=== PATIENT | female | born 2000 | race Caucasian/White ===

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

== ENCOUNTER 2022-03-18 21:05 | Emergency (ER) | payer MEDICAID ==
[~2022-03-18] VITALS: Ht 167.6 cm; Wt 81.8 kg
[~2022-03-18 21:05] MED LIST changes: +ZOFRAN4 M2 PO
[2022-03-18] MEDS ORDERED: CLEOCIN HCL150 M1 PO (21:48)
== END 2022-03-18 22:01 | disposition home or self-care (01) ==
LOC: ED 21:05
DX: K05.10 Chronic gingivitis, plaque induced (principal); F17.290 Nicotine dependence, other tobacco product, uncomplicated; Z88.1 Allergy status to other antibiotic agents; Z28.310 Unvaccinated for COVID-19

== ENCOUNTER 2022-04-08 13:02 | Emergency (ER) | payer MEDICAID ==
[~2022-04-08] VITALS: Ht 167.6 cm; Wt 81.8 kg
[~2022-04-08 13:02] MED LIST changes: +CLEOCIN HCL150 M1 PO
[2022-04-08 13:05] VITALS: BP 115/65
[2022-04-08] MEDS ORDERED: CEPHALEXIN500 M1 PO (13:49)
[2022-04-17 13:19] LABS: HERPES SIMPLEX VIRUS MOLECULAR AMS
== END 2022-04-08 13:56 | disposition home or self-care (01) ==
LOC: ED 13:02
PROVIDERS: Family Medicine
DX: N76.6 Ulceration of vulva (principal); F17.290 Nicotine dependence, other tobacco product, uncomplicated; Z28.310 Unvaccinated for COVID-19

== ENCOUNTER 2024-01-18 03:03 | Emergency (ER) | payer SELFPAY ==
[~2024-01-18 03:03] MED LIST changes: +CEPHALEXIN500 M1 PO; +CRUTCHES MC; +KETOROLAC10 MG PO
[2024-03-10 11:02] LABS: BASO # 0.01 K/mm3 (0.02-0.10); EOS # 0.05 K/mm3 (0.04-0.40); EOS % 0.5 % (1.0-5.0); HEMATOCRIT 38.8 % (37.0-47.0); HEMOGLOBIN 12.9 g/dL (12.5-16.0); LYMPH# 2.66 K/mm3 (1.50-4.00); MEAN CELL VOLUME 93 fl (78-100); MEAN CORPUSCULAR HEMOGLOBIN 31 pg (27-31); MEAN CORPUSCULAR HGB CONC 33 g/dL (33-37); MEAN PLATELET VOLUME 10.6 fl (7.4-10.4); MONO # 0.79 K/mm3 (0.20-0.80); NEU # 6.72 K/mm3 (1.40-6.50); PLATELET COUNT 246 K/mm3 (130-400); RED BLOOD COUNT 4.18 M/mm3 (4.10-5.30); RED CELL DISTRIBUTION WIDTH 13.5 % (11.5-14.5); WHITE BLOOD COUNT 10.2 K/mm3 (4.8-10.8)
[2024-03-10 11:10] LABS: ACETAMINOPHEN < 1 ug/mL; ALBUMIN 4.4 g/dL (3.5-5.0); ALCOHOL IN-HOUSE 87 mg/dL (<10); ALT/SGPT 14 U/L (0-55); AST-SGOT 17 U/L (5-34); CALCIUM 9.3 mg/dL (8.3-10.5); CARBON DIOXIDE 18 mmol/L (22-29); GLUCOSE 106 mg/dL (65-105); SODIUM 143 mmol/L (136-145); TOTAL BILIRUBIN 0.2 mg/dL (0.2-1.2); TOTAL PROTEIN 6.9 g/dL (6.4-8.3)
[2024-03-10 11:11] LABS: PH-URINE 5.5 (5.0 - 8.0); URINE APPEARANCE CLOUDY (CLEAR)
[2024-03-10 11:12] LABS: URINE BILIRUBIN NEGATIVE (NEGATIVE); URINE BLOOD 2+ (NEGATIVE); URINE COLOR LIGHT YELLOW (YELLOW); URINE GLUCOSE NEGATIVE (NEGATIVE); URINE KETONE NEGATIVE (NEGATIVE); URINE LEUKOCYTE ESTERASE NEGATIVE (NEGATIVE); URINE NITRATE NEGATIVE (NEGATIVE); URINE PROTEIN(semi-quant) NEGATIVE (NEGATIVE); URINE WBC 0-1 /hpf (0-3)
== END 2024-01-18 09:52 | disposition home or self-care (01) ==
LOC: ED 03:03
PROVIDERS: Family Medicine
DX: F10.10 Alcohol abuse, uncomplicated (principal); F32.A Depression, unspecified

== ENCOUNTER 2024-11-15 07:36 | Emergency (ER) | payer SELFPAY ==
[~2024-11-15] VITALS: Ht 167.6 cm; Wt 104.5 kg
[2024-11-15 08:39] VITALS: BP 93/76
== END 2024-11-15 08:39 | disposition home or self-care (01) ==
LOC: ED 07:36
DX: J06.9 Acute upper respiratory infection, unspecified (principal)